=== PATIENT | male | born 1945 | race Caucasian/White ===

== ENCOUNTER 2019-12-03 09:07 | Inpatient (IN) | payer OTHER ==
[~2019-12-03] VITALS: Ht 182.9 cm; Wt 68.9 kg
[2019-12-03] MEDS ORDERED: ACETAMINOPHEN EXTRA STRENGTH 500 MG TAB PO ONE (09:15)
[2019-12-03 09:18] VITALS: BP 145/55
--- NOTE | 2019-12-03 09:20 | NUR ---
PT BROUGHT IN [facility] WITH C/O SOB, AND COUGH X 2 DAYS. PRESENTS WITH MOIST COUGH NON-PRODUCTIVE, IV LEFT FOREARM PLACED BY [facility]. PER [facility] PT WAS 87% ON RM AIR, NONREBREATHER MASK SPO2 MASK 95%. TEMP 100.1 MEDICATION GIVEN. FLU SWAB COLLECTED, AND SENT TO THE LAB. COOLING MEASURES INITIATED. SIDE RAILS UP X2, PT PLACED ON MONITOR WILL CONTINUE TO MONITOR.
[2019-12-03 09:39] LABS: HEMATOCRIT 36.1 % (36-52); HEMOGLOBIN 11.5 g/dL (12.0-18.0); MEAN CORPUSCULAR HEMOGLOBIN 28 pg (27-31); MEAN CORPUSCULAR HGB CONC 32 g/dL (33-37); MEAN CORPUSCULAR VOLUME 88.9 fL (80-94); PLATELET COUNT (AUTO) 549 K/uL (140-450); RED BLOOD CELL COUNT(AUTO) 4.06 MIL/uL (4.20-6.10); RED CELL DISTRIBUTION WIDTH 19.2 % (11.6-13.7); WHITE BLOOD COUNT (AUTO) 24.7 K/uL (4.8-10.8)
[2019-12-03] MEDS ORDERED: ASPI-1822 PO (09:48)
[2019-12-03] MEDS ORDERED: PRON INH (09:48)
[2019-12-03] MEDS ORDERED: FAMO-90 PO (09:48)
[2019-12-03] MEDS ORDERED: FLUT1POW2 (09:48)
[2019-12-03] MEDS ORDERED: UMEC62.5 IH (09:48)
[2019-12-03] MEDS ORDERED: CHLO25TA33 PO (09:48)
[2019-12-03] MEDS ORDERED: IPRA3AMP2 IH (09:48)
[2019-12-03] MEDS ORDERED: TAMS0.4C96 PO (09:48)
[2019-12-03] MEDS ORDERED: MULT9LIQ4 PO (09:48)
[2019-12-03] MEDS ORDERED: DOCU-299 PO (09:48)
[2019-12-03] MEDS ORDERED: ROC2I (09:48)
[2019-12-03] MEDS ORDERED: NIFE90TE4 PO (09:48)
[2019-12-03] MEDS ORDERED: ATOR20TA PO (09:48)
[2019-12-03] MEDS ORDERED: ACET-2619 PO (09:48)
[2019-12-03] MEDS ORDERED: CILO100T PO (09:48)
[2019-12-03] MEDS ORDERED: SYN.1 PO (09:48)
[2019-12-03 10:00] LABS: ALBUMIN 2.3 g/dL (3.4-5.0); ASPARTATE AMINOTRANSFERASE 24 U/L (15-37); CARBON DIOXIDE 29.4 mmol/L (21-32); CHLORIDE 95 mmol/L (98-107); CREATININE 2.7 mg/dL (0.6-1.3); GLUCOSE 98 mg/dL (74-106); POTASSIUM 4.4 mmol/L (3.5-5.1); SODIUM SERUM 132 mmol/L (136-145); TOTAL BILIRUBIN 0.4 mg/dL (0.0-1.0); UREA NITROGEN, BLOOD 54 mg/dL (7-18)
[2019-12-03] MEDS ORDERED: PIPERACILLIN/TAZOBACTAM 3.375 GM in DEXTROSE 5% 50 ML IV ONE (10:00)
[2019-12-03] MEDS ORDERED: ACETAMINOPHEN 325 MG TAB PO ONE (10:00)
[2019-12-03] MEDS ORDERED: IPRATROPIUM 0.02% 0.5 MG/2.5 ML NEBU INH ONE (10:00)
[2019-12-03] MEDS ORDERED: ALBUTEROL 0.083% 2.5 MG/3 ML NEBU INH ONE (10:00)
[2019-12-03] MEDS ORDERED: VANCOMYCIN 1,000 MG in DEXTROSE 5% 250 ML IV ONE (10:00)
[2019-12-03] MEDS ORDERED: PIPERACILLIN/TAZOBACTAM 3.375 GM VIAL IV ONE (10:16)
[2019-12-03 10:22] LABS: LYMPHOCYTES % (MANUAL) 3 % (20-46); MONOCYTES % (MANUAL) 2 % (5-12)
[2019-12-03] MEDS ORDERED: NACL 0.9% 1,000 ML IV ONE (10:30)
[2019-12-03] MEDS ORDERED: VANCOMYCIN 1,000 MG VIAL ONE (10:48)
[2019-12-03] MEDS ORDERED: ALBUTEROL 0.083% 2.5 MG/3 ML NEBU INH PRN ×2 (11:10)
[2019-12-03] MEDS ORDERED: HYDROcodone/APAP 5/325 MG 1 TAB TAB PO PRN (11:10)
[2019-12-03] MEDS ORDERED: ONDANSETRON 4 MG/2 ML VIAL IVP PRN (11:10)
[2019-12-03] MEDS ORDERED: ACETAMINOPHEN 325 MG TAB PO PRN (11:10)
[2019-12-03 11:23] LABS: APPEARANCE,URINE CLEAR (CLEAR); BILIRUBIN,URINE NEGATIVE (NEGATIVE); BLOOD, URINE 2+ (NEGATIVE); COLOR,URINE YELLOW (YELLOW); LEUKOCYTE ESTERASE ,URINE 2+ (NEGATIVE); NITRITE, URINE NEGATIVE (NEGATIVE); PH,URINE 7.5 (5.0-9.0); UGLUCOSE NEGATIVE (NEGATIVE)
[2019-12-03 11:42] VITALS: BP 122/44
--- NOTE | 2019-12-03 11:55 | NUR ---
PT ARRIVED UNIT VIA [facility] BY ER NURSE BILLIE. PT IS AAOX1 TO NAME, SPEECH IS MUMBLING. ASSISTED TO TRANSFER [place]. RESPIRATION SHALLOW AND EVEN ON SIMPLE MASK 10 LPM, SPO2 AT 94%. FLACC 0. IV ON L FA 22G, CLEAN AND INTACT, INFUSING VANCOMYCIN AT 165ML/HR AND 2 LITER BOLUS IS ATTACHED. COLOSTOMY BAG NOTED AND 1/3 FULL. PT IS BEDREST AND INCONTINENT. ORIENTED PT TO ROOM, DEMONSTRATED TO PT ON HOW TO USE CALL LIGHT, BED REMOTE, TV, LIGHTS AND TELEPHONE; REINFORCEMENT NEEDED. SAFETY MEASURES IN PLACE. BED IN LOW POSITION AND CALL LIGHT WITHIN REACH.
--- NOTE | 2019-12-03 11:55 | NUR ---
Patient will be admitted to care of Dr Reed. Admited to M/S room 107a. Belongings list completed. Report to KASEY Rodríguez.
--- NOTE | 2019-12-03 12:10 | NUR ---
VITAL SIGNS TAKEN AND FOLLOW: BP 109/47 FROM R BRACHIAL, PULSE 85, SPO2 AT 94% VIA 10 LPM VIA SIMPLE MASK, RR 22, FLACC 0. MRSA NARES COLLECTED. PAGED DR MAIN TO ASK IF POSSIBLE TO TRANSFER PT TO TELE FROM MED-SURG DUE TO PT IS ON HIGH OXYGEN, AWAITING FOR DR MAIN TO CALL BACK.
--- NOTE | 2019-12-03 12:20 | NUR ---
RECEIVED CALL BACK FROM DR MAIN, PER DR MAIN, MONITOR PT'S SPO2 AND MAINTAIN BETWEEN 88% TO 92%. HE WILL BE IN THE HOSPITAL SHORTLY.
[2019-12-03] MEDS ORDERED: PIPERACILLIN/TAZOBACTAM 2.25 GM in DEXTROSE 5% 50 ML IV SCH (13:00)
--- NOTE | 2019-12-03 13:02 | NUR ---
DR MAIN IS ASSESSING PT BY BEDSIDE. PER DR MAIN, CHANGE PATIENT TO TELE FROM MED-SURG. ATTACHED TELE MONITOR.
--- NOTE | 2019-12-03 13:10 | NUR ---
DR FRIEDMAN INFORMED OF ABG RESULTS
--- NOTE | 2019-12-03 13:15 | NUR ---
VANCOMYCIN COMPLETED. SWITCHED TO NS AND CONTINUE BOLUS FROM ER.
--- NOTE | 2019-12-03 13:42 | NUR ---
CALLED [facility] [phone] SPOKE WITH CHARGE NURSE. SHE STATED THEY DONT HAVE ANY FAMILY INFORMATION FOR THE PATIENT. VERIFIED THE PATIENTS CODE STATUS WITH CHARGE NURSE THE SIGNING MILL LABORER ON THE POLST WAS NOT AVAILABLE
--- NOTE | 2019-12-03 14:05 | NUR ---
PER DR MAIN, CHANGE CODE TO DNR FROM FULL CODE AND CHANGE DIET TO NPO AND ORDER SWALLOW EVALUATION. REPEATED AND CONFIRMED ORDERS WITH DR MAIN.
[2019-12-03] MEDS: NACL 0.9% 1,000 ML IV SCH ×2 (14:35→23:40)
--- NOTE | 2019-12-03 14:35 | NUR ---
STARTED IVF PER MD ORDER, NS INFUSING AT 80 ML/HR.
[2019-12-03 14:46] LABS: BASOPHILS # (AUTO) 0.1 K/uL (0.00-0.22); BASOPHILS % (AUTO) 0.4 % (0.0-2.0); HEMATOCRIT 37.3 % (36-52); HEMOGLOBIN 11.7 g/dL (12.0-18.0); LYMPHOCYTES # (AUTO) 0.3 K/uL (2.0-11.5); LYMPHOCYTES % (AUTO) 1.3 % (20.5-51.1); MEAN CORPUSCULAR HEMOGLOBIN 28 pg (27-31); MEAN CORPUSCULAR HGB CONC 31 g/dL (33-37); MEAN CORPUSCULAR VOLUME 90.2 fL (80-94); MONOCYTES # (AUTO) 0.3 K/uL (0.8-1.0); MONOCYTES % (AUTO) 1.8 % (1.7-9.3); NEUTROPHILS # (AUTO) 18.6 K/uL (1.8-7.7); NEUTROPHILS % (AUTO) 96.5 % (42.2-75.2); PLATELET COUNT (AUTO) 480 K/uL (140-450); RED BLOOD CELL COUNT(AUTO) 4.14 MIL/uL (4.20-6.10); RED CELL DISTRIBUTION WIDTH 19.4 % (11.6-13.7); WHITE BLOOD COUNT (AUTO) 19.3 K/uL (4.8-10.8)
--- NOTE | 2019-12-03 14:50 | NUR ---
WITH ASSIST FROM APPLICATION DEVELOPMENT DIRECTOR AND TWO RNS, TRANSFER PT TO ANOTHER BED WITH BED ALARM. CHANGED PT INTO YELLOW GOWN, SOCK AND APPLIED WRIST BAND. RECEIVED ID ARM BAND FROM ADMINISTRATION AND APPLIED ON PT.
--- NOTE | 2019-12-03 14:56 | NUR ---
ENDORSED PT AT BEDSIDE TO ABENA PARKS FOR CONTINUITY OF CARE. PT IS IN STABLE CONDITION. NPO MAINTAINED AND SIGN POSTED BY DOOR. TELE MONITOR ATTACHED. SAFETY MEASURES IN PLACE. BED ALARM ACTIVATED.
--- NOTE | 2019-12-03 14:58 | NUR ---
RECEIVED FROM AM KASEY BADILLO. PT. IS AWAKE ON A SIMPLE MASK ON 7L/MIN. V/S BP 122/44, O2 SAT 95%, HR 99, TEMP IS 98.0, RR 22. PT. IS AROUSABLE AND AWAKE, BREATHING IS LABORED. PERIPHERAL LINE ON LEFT WRIST 22G WITH NS AT 80ML/HR. SKIN ASSESSMENT DONE, SLIGHT ERYTHEMA NOTED ON SACRAL AREA. REINFORCED WITH OPTIFOAM DRESSING. WILL CONTINUE TO MONITOR.
[2019-12-03 15:03] LABS: ANION GAP 10.6 (8-16); ASPARTATE AMINOTRANSFERASE 24 U/L (15-37); CARBON DIOXIDE 29.6 mmol/L (21-32); CHLORIDE 97 mmol/L (98-107); CREATININE 2.8 mg/dL (0.6-1.3); GLUCOSE 110 mg/dL (74-106); POTASSIUM 4.2 mmol/L (3.5-5.1); SODIUM SERUM 133 mmol/L (136-145); TOTAL BILIRUBIN 0.4 mg/dL (0.0-1.0); UREA NITROGEN, BLOOD 55 mg/dL (7-18)
--- NOTE | 2019-12-03 15:08 | NUR ---
DR. MAIN CAME TO PT. ROOM, ATTEMPTED TO SPEAK WITH THE PATIENT. PATIENT WAS ASKED TO LIFT HIS LEFT ARM BUT PT. UNABLE TO FOLLOW COMMAND FROM THE MD. EYES OPEN. WILL CONTINUE TO MONITOR.
[2019-12-03] MEDS: PIPERACILLIN/TAZOBACTAM 2.25 GM in DEXTROSE 5% 50 ML IV SCH ×2 (15:24→20:59)
--- NOTE | 2019-12-03 15:24 | NUR ---
PT WAS GIVEN IV ZOSYN NOW VIA PIGGYBACK, WILL MONITOR PT.
--- NOTE | 2019-12-03 15:58 | NUR ---
CHEST X-RAY IS BEING DONE TO PT NOW.
[2019-12-03 16:00] VITALS: BP 101/42
[2019-12-03 16:54] VITALS: BP 105/32
--- NOTE | 2019-12-03 17:20 | NUR ---
PT ANXIOUS RIPPED OFF BIPAP REFUSED TO USE DR GREEN AWARE WELL S RN PLACED PT ON SIMPLE WASK AT 10 LPM NC
--- NOTE | 2019-12-03 19:05 | NUR ---
ENDORSED PT. TO INDIAN NANNY NURSE. PT. IS STABLE, AWAKE AND IN BED. CALL LIGHT WITHIN REACH, NO SIGNS OF DISTRESS NOTED.
--- NOTE | 2019-12-03 19:30 | NUR ---
RECEIVED BEDSIDE REPORT FROM AM SHIFT RN FOR PT'S CONTINUITY OF CARE. PT IS AWAKE, ON 7L O2 VIA FACEMASK, ON CHANNEL MACHINE OPERATOR, HAS LEFT FA 22G, FLACC - 0. PER AM SHIFT, PT REFUSED GIORDANO CATH INSERT, NOR CONDOM CATH. SAFETY MEASURES IN PLACE, AND CALL LIGHT IS WITHIN REACH. MADE PT COMFORTABLE. WILL MONITOR PT THROUGHOUT SHIFT.
[2019-12-03 20:00] VITALS: BP 138/83
--- NOTE | 2019-12-03 20:59 | NUR ---
ADMINISTERED SCHEDULED IV ABX ORDERED. PT REFUSED SCHEDULED PO MEDICATION. WILL CONTINUE TO MONITOR PT.
[2019-12-03] MEDS: ATORVASTATIN 20 MG TAB PO SCH (21:00)
--- NOTE | 2019-12-03 22:15 | NUR ---
RECEIVED CALL FROM LAB, BLOOD CULTURE POSITIVE FOR GRAM POSITIVE COCCI IN CHAIN. WILL NOTIFY
--- NOTE | 2019-12-03 22:23 | NUR ---
PAGED REFERENCE AND INSTRUCTION LIBRARIAN AWAITING FOR RESPONSE.
--- NOTE | 2019-12-03 22:25 | NUR ---
PHARMACY TECHNICIAN PROGRAM DIRECTOR , DR. QUINN, INFORMED RE: CRITICAL LAB VALUE OF BLOOD CULTURE. NEW ORDERS: VANCOMYCIN 1 GRAM NOW, PHARMACY TO DOSE, AND CONSULT WITH DR. PARKER FOR INFECTIOUS DISEASE. WILL CARRY OUT ORDERS.
[2019-12-03] MEDS ORDERED: VANCOMYCIN PER PHARMACY MC PRN (22:30)
[2019-12-04] VITALS: BP 115/45
--- NOTE | 2019-12-04 | NUR ---
VS CHECKED AND CHARTED. PT MADE COMFORTABLE. SHOWS NO SIGNS OF DISTRESS OR DISCOMFORT. WILL CONTINUE TO MONITOR PT.
[2019-12-04] MEDS ORDERED: cefTRIAXone 2,000 MG VIAL ONE (01:34)
[2019-12-04] MEDS: cefTRIAXone 2,000 MG in DEXTROSE 5% 100 ML IV SCH (01:41)
--- NOTE | 2019-12-04 01:45 | NUR ---
ADMINISTERED SCHEDULED IV ABX ORDERED. PT BEING CHANGED AND REPOSITIONED, PT TOLERATED ACTIVITY. PT SHOWS NO SIGNS OF DISTRESS. WILL CONTINUE TO MONITOR PT.
[2019-12-04 04:00] VITALS: BP 105/46
--- NOTE | 2019-12-04 04:00 | NUR ---
VS CHECKED AND CHARTED. PT'S O2 SATURATION AT 78% HIGHEST ON 11L FACEMASK. NOTIFIED RT, RT CAME AND ASSESSED PT. PUT PT ON 100% BIPAP, PT SATURATION AFTER REPOSITIONING CAME UP TO 94-95%. RT WILL KEEP ON REASSESSING PT. WILL CONTINUE TO MONITOR PT.
[2019-12-04] MEDS: NACL 0.9% 1,000 ML IV SCH (04:26)
--- NOTE | 2019-12-04 05:18 | NUR ---
PAGED ELECTROGALVANIZING MACHINE OPERATOR MD FOR ABG RESULT DONE AT 0500. ABG PH 7.086, PCO2 94.9, PO2 83.3. MD NOTIFIED, NO NEW ORDER. PT IS DNR, ACKNOWLEDGE. WILL CONTINUE OT MONITOR PT.
[2019-12-04 07:14] LABS: BASOPHILS # (AUTO) 0.1 K/uL (0.00-0.22); BASOPHILS % (AUTO) 0.6 % (0.0-2.0); HEMATOCRIT 37.7 % (36-52); HEMOGLOBIN 11.6 g/dL (12.0-18.0); LYMPHOCYTES # (AUTO) 0.2 K/uL (2.0-11.5); LYMPHOCYTES % (AUTO) 0.8 % (20.5-51.1); MEAN CORPUSCULAR HEMOGLOBIN 28 pg (27-31); MEAN CORPUSCULAR HGB CONC 31 g/dL (33-37); MONOCYTES # (AUTO) 0.4 K/uL (0.8-1.0); MONOCYTES % (AUTO) 1.9 % (1.7-9.3); NEUTROPHILS # (AUTO) 20.3 K/uL (1.8-7.7); NEUTROPHILS % (AUTO) 96.7 % (42.2-75.2); PLATELET COUNT (AUTO) 508 K/uL (140-450); RED CELL DISTRIBUTION WIDTH 19.6 % (11.6-13.7)
[2019-12-04 07:25] LABS: ANION GAP 14.6 (8-16); CHLORIDE 100 mmol/L (98-107); CREATININE 2.9 mg/dL (0.6-1.3); GLUCOSE 81 mg/dL (74-106); POTASSIUM 4.6 mmol/L (3.5-5.1); SODIUM SERUM 138 mmol/L (136-145)
--- NOTE | 2019-12-04 07:28 | NUR ---
RECEIVED REPORT FROM NIGHT NURSE. PT IN BED, AWAKE, AAOX1, NO DISTRESS NOTED, FLACC 0. RESPIRATIONS EVEN AND UNLABORED ON BIPAP 100%. IV IN PLACE, PATENT AND ASYMPTOMATIC IN L FA 22G INFUSING PER ORDER. SKIN INTACT, PERINEAL REDNESS, OPTIFOAM DRESSING IN PLACE. RIGHT COLOSTOMY BAG PRESENT, NPO EXCEPT MEDS STATUS IN PLACE. NIGHT NURSE MENTIONED HOLDING PO MEDICATIONS DUE TO INABILITY TO SWALLOW. SAFETY MEASURES IN PLACE, CALL LIGHT WITHIN REACH, BED IN LOW POSITION. WILL CONTINUE TO MONITOR.
[2019-12-04 07:41] LABS: UREA NITROGEN, BLOOD 63 mg/dL (7-18)
[2019-12-04 08:00] VITALS: BP 114/49
--- NOTE | 2019-12-04 08:20 | NUR ---
PATIENT HAS BEEN SCREENED AND CATEGORIZED MODERATE NUTRITION RISK. PATIENT WILL BE SEEN WITHIN 3-5 DAYS OF ADMISSION. 12/05/19 12/07/[address]
--- NOTE | 2019-12-04 08:27 | NUR ---
PT RESPONDS TO NAME, BUT UNABLE TO RESPOND TO COMMANDS. AAOX0. PO MEDICATIONS HELD DURING METAL SHAPING MACHINE OPERATOR, DOCTOR NOTIFIED PER NIGHT NURSE MAVIS. WILL HOLD PT PO MEDICATIONS DUE TO HAZARD OF CHOKING AND PT INABILITY TO FOLLOW COMMANDS. SAFETY MEASURES IN PLACE. WILL CONTINUE TO MONITOR.
--- NOTE | 2019-12-04 08:52 | NUR ---
PT CONTINUOUSLY REFUSES BIPAP MASK PER RT MCKOY, PT CONTINUES TO REMOVE BIPAP MASK. PT PUT ON NON REBREATHER MASK. WILL CONTINUE TO MONITOR.
--- NOTE | 2019-12-04 08:54 | NUR ---
PT NONCOMPLIANT CONTINUES TO RIP BIPAP MASK OFF RN AWARE PLACED ON 100%NRB MASK SPO2 .85 TO .90
[2019-12-04] MEDS ORDERED: FAMOTIDINE 20 MG TAB PO SCH (09:00)
[2019-12-04] MEDS ORDERED: NIFEdipine 90 MG TABER PO SCH (09:00)
[2019-12-04] MEDS ORDERED: CILOSTAZOL 100 MG TAB PO SCH (09:00)
[2019-12-04] MEDS ORDERED: TAMSULOSIN 0.4 MG CAP PO SCH (09:00)
[2019-12-04] MEDS ORDERED: LEVOTHYROXINE 0.1 MG TAB PO SCH (09:00)
[2019-12-04] MEDS ORDERED: ACETAMINOPHEN 325 MG TAB PO SCH (09:00)
[2019-12-04] MEDS ORDERED: ASPIRIN 81 MG TAB.CHEW PO SCH (09:00)
[2019-12-04] MEDS ORDERED: DOCUSATE SODIUM 100 MG GELCAP PO SCH (09:00)
--- NOTE | 2019-12-04 10:22 | NUR ---
PT SEEN BY SPEECH THERAPIST FELIX. PT UNABLE TO SWALLOW APPLESAUCE. WILL SUGGEST NPO FOR PT.
--- NOTE | 2019-12-04 10:47 | NUR ---
*S.T. Bedside Swallow Eval completed* See report. Pt presents w/ severe oropharyngeal dysphagia c/b only one observed initiation of pharyngeal swallow out of 6 P.O. trials. All subsequent P.O. trials of puree and honey thick liquids by spoon were pooled anteriorly in oral cavity, some drooled out. Aside from that one instance, pt demonstrated absent oral prep and A-P propulsion and absent pharyngeal swallow initiation. Pt is deemed to be at high aspiration risk. Recommend: 1) Continue NPO status w/ non-oral means of nutrition, hydration and meds. 2) Swallow tx 1x/1 wk/Reassess in 3 days. 3) Aspiration precautions 4) Aggressive oral care D/w pt and endorsed to KASEY Mccoy. Time [id number]
[2019-12-04 12:00] VITALS: BP 139/61
--- NOTE | 2019-12-04 12:30 | NUR ---
PT PLACED ON FACEMASK 10L O2 BY RT. PT CONTINUOUSLY REMOVES MASK. PT BEING MONITORED CLOSELY TO MAINTAIN O2 DELIVERY AND O2 SATURATION AT ADEQUATE LEVEL.
--- NOTE | 2019-12-04 15:02 | NUR ---
PT TO BE PUT ON COMFORT MEASURES PER DR MAIN, PENDING DR REA CO SIGNATURE. PT VITAL SIGNS STABLE. RESPIRATIONS LABORED AND SUPERFICIAL ON NONREBREATHER MASK AT 15L O2. SAFETY MEASURES IN PLACE. CALL LIGHT WITHIN REACH. WILL CONTINUE TO MONITOR.
[2019-12-04 16:00] VITALS: BP 126/94
[2019-12-04] MEDS ORDERED: MORPHINE SULFATE 4 MG/ML SYR IVP PRN (16:00)
[2019-12-04] MEDS ORDERED: ACETAMINOPHEN 650 MG SUPP RC PRN (16:00)
[2019-12-04] MEDS ORDERED: HYOSCYAMINE 0.125 MG TAB SL PRN (16:00)
[2019-12-04] MEDS ORDERED: HYDROmorphone PFS 2 MG/ML SYR IVP PRN (16:00)
[2019-12-04] MEDS ORDERED: BISACODYL 10 MG SUPP RC PRN (16:00)
[2019-12-04] MEDS ORDERED: ONDANSETRON 4 MG/2 ML VIAL IVP PRN (16:00)
[2019-12-04] MEDS ORDERED: LORazepam 2 MG/ML VIAL IVP PRN (16:00)
--- NOTE | 2019-12-04 16:15 | NUR ---
POLST FORM FOR DNR WITH COMFORT MEASURES NEEDS 2 PHYSICIANS TO SIGN AND PT IS ALTERED. POLST SIGNED BY DR. MAIN. DR. BEAL NOTIFIED FOR THE 2ND PHYSICIAN AND STATED SHE WILL COME TO SIGN THE POLST TONIGHT AROUND 8PM. DR. BEAL MADE AWARE THAT COMFORT MEASURES ALREADY STARTED BY DR. MAIN.
[2019-12-04] MEDS ORDERED: SCOPOLAMINE 1.5 MG/72 HR PATCH TD PRN (17:00)
--- NOTE | 2019-12-04 17:35 | NUR ---
PT IN BED ASLEEP, NO DISTRESS NOTED. RESPIRATIONS LABORED AND SHALLOW ON O2 15L VIA NONREBREATHER MASK. O2 SATURATION AT 93%. SAFETY MEASURES IN PLACE. CALL LIGHT WITHIN REACH. WILL CONTINUE TO MONITOR.
--- NOTE | 2019-12-04 18:20 | NUR ---
DR. BEAL ( [facility] PHYSICIAN ) CAME IN TO SIGN PT'S POLST FOR DNR WITH COMFORT MEASURES THE 2ND PHYSICIAN, SINCE PT DOES NOT HAVE A NEXT OF KIN ON RECORD AND PT CAN'T SIGN FOR HIMSELF DUE TO HIS CONDITION (ALOC).
--- NOTE | 2019-12-04 19:10 | NUR ---
REPORT GIVEN TO NIGHT NURSE FOR CONTINUITY OF CARE.
--- NOTE | 2019-12-04 19:15 | NUR ---
RECEIVED REPORT FORM COLE PARKS DAYSHIFT NURSE AT BEDSIDE FOR CONTINUITY OF CARE, PT IN STABLE CONDITION.
[2019-12-04 20:00] VITALS: BP 123/49
--- NOTE | 2019-12-04 20:00 | NUR ---
PT IN BED, HE IS AOX1 WITH NON REBREATHER MASK AT 15 LITERS. PT HAS LEFT FOREARM IV SITE 22 GUAGE INTACT AND FLUSHED PATENT RUNNING NORMAL SALINE AT 80MLS/HR.V/S FOLLOWS: T 97.4 P 91 R 20 B/P 123/49 02 94% WITH NON REBREATHER MASK. PT LUNG SOUNDS DIMINISHED WITH RHONCHI MOUTH CARE PROVIDED. ALL FALLS PROTOCOL IN PLACE.
[2019-12-04] MEDS: ATORVASTATIN 20 MG TAB PO SCH (21:00)
--- NOTE | 2019-12-04 21:30 | NUR ---
PT TURNED AND REPOSITIONED IN BED NORMAL SALINE BAG REPLACED AND CONTINUES AT 80MLS/HR. RT AT BEDSIDE TO PROVIDE NEB TREATMENT.
--- NOTE | 2019-12-04 21:37 | NUR ---
PT SEEN AND ASSESSED. PT IS IN NO APPARENT RESPIRATORY DISTRESS AT THIS TIME; HR 97, RR 20, SPO2 OF 94% ON NRB, AND A WHEEZING BREATH SOUNDS. HHN PRN TX GIVEN AT THIS TIME FOR WHEEZING WITH NO ADVERSE REACTION. WILL CONTINUE TO MONITOR PT.
--- NOTE | 2019-12-04 22:53 | NUR ---
PT FOUND WITH MASK OF AND 02 OF 67%, MASK WAS PLACED BACK ON HIS FACE AND 02 STARTED TO SLOWLY CLIMB TO 81% PT NOTED BREATHING WITH OPEN MOUTH AND USING ACCESSORY MUSCLES RT CALLED.
--- NOTE | 2019-12-04 23:28 | NUR ---
RT AT BEDSIDE, RR AT 20, BUT PT CONTINUES TO USE ACCESSORY MUSCLES TO BREATH 02 REMAINS IN THE MID 80'S DUE TO BIPAP BEING CONTRA INDICATED AT THIS TIME, RT ALSO EXPLAINED THAT SUCTIONING TO THIS PT AT THIS TIME, WILL NOT HELP 02 COME BACK UP TO 90'S. RT ENCOURAGED COMFORT MEASURES. PT GIVEN IVP ATIVAN FOR AGITATION. WILL MONITOR FOR EFFECT.
[2019-12-05] VITALS: BP 136/43
--- NOTE | 2019-12-05 | NUR ---
PT IN BED 15 LITER NON REBREATHER MASK ON FACE, HOWEVER PT IS STATING AT 80% RESPIRATIONS AT 20 BUT SHALLOW USE OF ACCESSORY MUSCLES NOTED AND BREATHING WITH OPEN MOUTH. V/S FOLLOWS; T 96.1 P 89 R 22 B/P 136/43 02 80%.
--- NOTE | 2019-12-05 00:20 | NUR ---
HEART RHYTHM IS SB AT 56 WITH JUNCTIONAL RHYTHM AND INVERTED T. PT 02 CONTINUES TO DROP IN THE MID 70'S BREATHING MORE SHALLOW AND LESS FREQUENCY AT 10 PER MINUTE. PT IS DNR AND COMFORT CARE ONLY.
--- NOTE | 2019-12-05 00:35 | NUR ---
PT HEAR RATE DROPPED TO 35 02 AT 58, PT IS PALE WITH RESPIRATIONS AT 6 PER MINUTE.
[2019-12-05] MEDS: NACL 0.9% 1,000 ML IV SCH (00:40)
--- NOTE | 2019-12-05 00:45 | NUR ---
PT NO LONGER BREATHING , NO VITALS SIGNS CAN BE REGISTERED AT THIS TIME. PT IS PALE WHITE EYES FIXED AND DILATED, FINGERTIPS ARE BLUE WITH NO CAPILLARY REFILL. CALLED MD JUAN ANTONIO KIM TO PRONOUNCE PT.
--- NOTE | 2019-12-05 00:55 | NUR ---
MD KIM EXAMINED PT AND PRONOUNCED HIM AT 0055.
[2019-12-05] MEDS: cefTRIAXone 2,000 MG in DEXTROSE 5% 100 ML IV SCH (00:58)
--- NOTE | 2019-12-05 01:30 | NUR ---
[facility] CALLED , PT IS NOT AN ELIGIBLE NIXON, CASE # [id number].
--- NOTE | 2019-12-05 02:20 | NUR ---
EDUCATION DIRECTOR OFFICE CALLED MSG LEFT FOR DEPUTY TO CALL BACK.
--- NOTE | 2019-12-05 04:00 | NUR ---
CORONOR OFFICE AGAIN CALLED 2 ND MESSAGE LEFT.WAITING CLL BACK WILL ENDORSE TO AM SHIFT TO F/U.
--- NOTE | 2019-12-05 07:37 | NUR ---
Spoke to Sophia from [facility] and states they do not have available space at this time.
--- NOTE | 2019-12-05 07:48 | NUR ---
Spoke to Kimberly from [facility] to inquire about patient's mortuary arrangements. Per Kimberly, there are no records about pt's mortuary arrangement for patient.
--- NOTE | 2019-12-05 07:55 | NUR ---
Spoke to Sophia again from [facility] inquiring about referral to other mortuaries. Per Sophia, she will call us back for info.
--- NOTE | 2019-12-05 08:15 | NUR ---
Post-mortem care provided. Patient's remains placed in body bag, room temp kept on coolest setting.
--- NOTE | 2019-12-05 08:30 | NUR ---
Received call back from Sophia from [facility] and gave referral to [employer] [phone]. Spoke to Asha from [facility] and states unable to take remains due to no next of kin and no arrangements with them. Called Kye carcamo's office and awaiting call back from infrastructure software engineer.
--- NOTE | 2019-12-05 09:00 | NUR ---
Received call back from Mary from asic engineer's office and notified that no mortuary available to take pt's remains. Per Mary, she will speak with her boat outfitting supervisor and call us back for updates.
--- NOTE | 2019-12-05 09:23 | NUR ---
Received call from Camille (launch leader's office) [phone], stating that she will fax paperwork for patient and once the attending physician has signed it they will be able to vegetable picker the remains. Fax number to unit provided to Camille.
--- NOTE | 2019-12-05 11:27 | NUR ---
Dr. Cerrato arrived in unit. Completed certificate worksheet. Faxed to Camille @ [phone].
--- NOTE | 2019-12-05 11:50 | NUR ---
Received call back from Camille (care transport nurse's office) & states paperworks have been received in fax and she will arrange transport to scrap picker patient's remains with ETA of about 2hours.
--- NOTE | 2019-12-05 13:08 | NUR ---
Received call from Yohannes from client service executive's office and states ETA for pickling machine operator of remains is 45min-2hr.
--- NOTE | 2019-12-05 14:08 | NUR ---
Remains left facility at this time with Moraima from carburetor mechanic's office. Patient has no belongings.
== END 2019-12-05 14:08 | disposition expired | DRG 720 ==
LOC: MED 09:07 → MTU 11:19
PROVIDERS: ADMIT Hospitalist; ATTEND Hospitalist
PROC: 5A09357 Assistance with Respiratory Ventilation, Less than 24 Consecutive Hours, Continuous Positive Airway Pressure (ICD-10-PCS; principal; 2019-12-04)
DX: A41.50 Gram-negative sepsis, unspecified (principal); J96.01 Acute respiratory failure with hypoxia; G93.41 Metabolic encephalopathy; N17.9 Acute kidney failure, unspecified; J18.9 Pneumonia, unspecified organism; G82.20 Paraplegia, unspecified; N39.0 Urinary tract infection, site not specified; N18.3 Chronic kidney disease, stage 3 (moderate); R00.1 Bradycardia, unspecified; E86.0 Dehydration; I12.9 Hypertensive chronic kidney disease with stage 1 through stage 4 chronic kidney disease, or unspecified chronic kidney disease; E03.9 Hypothyroidism, unspecified; E78.5 Hyperlipidemia, unspecified; E87.1 Hypo-osmolality and hyponatremia; Y95 Nosocomial condition; I73.9 Peripheral vascular disease, unspecified; J44.0 Chronic obstructive pulmonary disease with (acute) lower respiratory infection; N40.0 Benign prostatic hyperplasia without lower urinary tract symptoms; Z66 Do not resuscitate; Z87.891 Personal history of nicotine dependence; Z93.3 Colostomy status; Z74.01 Bed confinement status; Z79.899 Other long term (current) drug therapy; Z90.49 Acquired absence of other specified parts of digestive tract
CPT/HCPCS: 36415; 36600; 71045; 80048; 80053; 81001; 82803; 83605; 83735; 83880; 84484; 85025; 85610; 85730; 87040; 87081; 87086; 87186; 87804; 92610; 93005; 94640; 94660; 99285; J0696; J2060; J2543; J3370; J7060; J7613; J7644; Q0092